=== PATIENT | female | born 1935 | race Caucasian/White ===

== ENCOUNTER 2018-06-11 20:33 | Observation (INO) | payer MEDICAID ==
[~2018-06-11] VITALS: Ht 147.3 cm; Wt 53.2 kg
[2018-06-11 20:54] VITALS: Ht 147.3 cm; Wt 53.2 kg
[2018-06-11] MEDS ORDERED: morphine 4 MG/ML VIAL IV STA (21:41)
[2018-06-11] MEDS ORDERED: ONDANSETRON 4 MG INJ IV STA (21:41)
[2018-06-11] MEDS ORDERED: ACETAMINOPHEN 500 MG TAB PO STA (21:41)
[2018-06-11] MEDS ORDERED: SOD CHLORIDE 0.9% 1,000 ML IV STA (21:41)
--- NOTE | 2018-06-11 21:43 | ERD ---
ER Documentation Chief Complaint Chief Complaint Hematuria, N/V, AP, fever X 3 days HPI This is an 83-year-old who had gross hematuria 2 days ago but has had continued dysuria and frequency and developed a low-grade fever today. She says off and on lower quadrant pain bilaterally and has a history of kidney stones. Currently she has no pain. She has nausea but no vomiting and no diarrhea. No chest pain shortness of breath or cough ROS All systems reviewed and are negative except as per history of present illness. Allergies Allergies: Coded Allergies: No Known Allergy (Unverified , 06/11/18) FmHx Family History: No coronary disease Physical Exam Vitals Vital Signs Date Temp Pulse Resp B/P (MAP) Pulse Ox O2 O2 Flow FiO2 Time Delivery Rate 06/12/18 75 13 122/62 99 Room Air 03:30 (82) 06/12/18 80 17 105/61 96 Room Air 01:30 (76) 06/11/18 91 18 104/53 96 Room Air 23:34 (70) 06/11/18 101.5 22:41 06/11/18 101.3 95 18 148/63 98 Room Air 21:15 (91) 06/11/18 101.3 97 18 132/93 97 20:54 (106) Physical Exam Const: Well-developed, well-nourished Head: Atraumatic, normocephalic Eyes: Normal Conjunctiva, PERRLA, EOMI, normal sclera, no nystagmus ENT: Normal External Ears, Nose and Mouth, moist mucus membranes. Neck: Full range of motion. No meningismus, no lymphadenopathy. Resp: Clear to auscultation bilaterally, no wheezing, rhonchi, rales Cardio: Regular rate and rhythm, no murmurs, S1 S2 present Abd: Soft, non tender x 4, non distended. Normal bowel sounds, no guarding or rebound, no pulsitile abdominal masses or bruits Skin: No petechiae or rashes, no ecchymosis , no maculopapular rash Back: No midline or flank tenderness Ext: No cyanosis, or edema, FROM x 4, normal inspection, neurovascularly intact x 4 Neur: Awake and alert, STR 5/5 x 4, sensation intact x 4, no focal findings, cerebellum intact Psych: Normal Mood and Affect Result Diagram: 3/212906/11/182129 Results 24 hrs Laboratory Tests Test 06/11/18 03:49 06/11/18 21:30 Urine Color BETTIE Urine Clarity CLOUDY Urine pH 5.0 Urine Specific [place] 1.011 Urine Ketones NEGATIVE mg/dL Urine Nitrite NEGATIVE mg/dL Urine Bilirubin NEGATIVE mg/dL Urine Urobilinogen NEGATIVE mg/dL Urine Leukocyte Esterase 3+ Edwin/ul Urine Microscopic RBC 51 /HPF Urine Microscopic WBC > 182 /HPF Urine Bacteria MODERATE /HPF Urine Mucus FEW /HPF Urine Hemoglobin 3+ mg/dL Urine Glucose 1+ mg/dL Urine Total Protein 2+ mg/dl White Blood Count 9.8 10^3/ul Red Blood Count 4.50 10^6/ul Hemoglobin 13.3 g/dl Hematocrit 40.1 % Mean Corpuscular Volume 89.1 fl Mean Corpuscular Hemoglobin 29.6 pg Mean Corpuscular Hemoglobin Concent 33.2 g/dl Red Cell Distribution Width 12.9 % Platelet Count 432 10^3/UL Mean Platelet Volume 9.1 fl Immature Granulocytes % 0.500 % Neutrophils % 78.6 % Lymphocytes % 9.6 % Monocytes % 10.7 % Eosinophils % 0.3 % Basophils % 0.3 % Nucleated Red Blood Cells % 0.0 /100WBC Immature Granulocytes # 0.050 10^3/ul Neutrophils # 7.7 10^3/ul Lymphocytes # 0.9 10^3/ul Monocytes # 1.1 10^3/ul Eosinophils # 0.0 10^3/ul Basophils # 0.0 10^3/ul Nucleated Red Blood Cells # 0.0 10^3/ul Sodium Level 139 mmol/L Potassium Level 4.1 mmol/L Chloride Level 99 mmol/L Carbon Dioxide Level 25 mmol/L Anion Gap 15 Blood Urea Nitrogen 30 mg/dl Creatinine 0.99 mg/dl Est Glomerular Filtrat Rate mL/min mL/min Glucose Level 105 mg/dl Calcium Level 10.0 mg/dl Total Bilirubin 0.5 mg/dl Direct Bilirubin 0.00 mg/dl Indirect Bilirubin 0.5 mg/dl Aspartate Amino Transf (AST/SGOT) 21 IU/L Alanine Aminotransferase (ALT/SGPT) 9 IU/L Alkaline Phosphatase 88 IU/L Total Protein 7.9 g/dl Albumin 4.2 g/dl Globulin 3.70 g/dl Albumin/Globulin Ratio 1.13 Lipase 108 U/L Current Medications Medications Dose Sig/Jasper Start Time Status Last (Trade) Ordered Route PRN Stop Time Admin Dose Reason Admin Sodium 1,000 ml @ Q1H STAT 06/11/18 DC 06/11/18 Chloride 1,000 mls/hr IV 21:41 22:41 06/11/18 22:40 Morphine 4 mg ONCE STAT 06/11/18 DC 06/11/18 Sulfate IV 21:41 22:41 (morphine) 06/11/18 21:43 Ondansetron 4 mg ONCE STAT 06/11/18 DC 06/11/18 HCl (Zofran IV 21:41 22:41 Inj) 06/11/18 21:43 1,000 mg ONCE STAT 06/11/18 DC 06/11/18 Acetaminophen PO 21:41 22:41 (Tylenol 06/11/18 21:43 Tab) Ceftriaxone 50 ml @ ONCE ONCE 06/12/18 DC 06/12/18 Sodium 100 mls/hr IVPB 04:00 04:30 06/12/18 04:29 Procedures/MDM MR #: [id number] DOS: 06/11/182140 Ordering MD: HUBER ALVAREZ DO Location: E/R Room/Bed: PROCEDURE: XR Chest. CLINICAL INDICATION: Abdominal pain TECHNIQUE: Single frontal view of the chest was obtained. COMPARISON: None FINDINGS: The heart is within normal limits. The thoracic aorta is calcified. The lungs are clear. There is no pleural effusion or pneumothorax. RPTAT: AA IMPRESSION: No acute disease. Calcified aorta consistent with atherosclerotic disease. .Warner Decker MD, Date Time Electronically viewed and signed by .Warner Decker MD, on 06/11/2018 22:08 .S/ CC: HUBER ALVAREZ DO [id number] MR #: [id number] DOS: 06/11/182140 Ordering MD: HUBER ALVAREZ DO Location: E/R Room/Bed: PROCEDURE: CT Abdomen and Pelvis without contrast. CLINICAL INDICATION: Pain. TECHNIQUE: CT scan of the abdomen and pelvis was performed on a multidetector slice CT scanner. No intravenous contrast material was utilized. Sagittal and coronal reformatted images were obtained from the axial source images. Images were reviewed on a high-resolution PACS workstation. Exam CTDlvol = 6.7 mGy and DLP = 347 Gy-cm. One of the following 3 dose reduction techniques were used: Automated exposure control; adjustment of the mA and/or kV according to patient size; or use of iterative reconstruction technique. DICOM images are available. COMPARISON: None. FINDINGS: There is a small hiatal hernia. There is no bowel obstruction or ileus. There is abundant retained stool throughout the colon. The appendix is visualized. There is no evidence for appendicitis.. There is no evidence for diverticulitis. There is no free fluid. The liver is enlarged measuring 18 cm length.. No intrahepatic lesions are identified. The gallbladder is absent. There is no definite biliary ductal dilation. Pancreas is normal in appearance. The spleen is unremarkable.. There are no adrenal masses. The aorta is normal caliber. Atherosclerotic vascular calcifications are present. There is 11 mm probable cyst in the upper pole right kidney. There is a punctate nonobstructing calcification upper pole right kidney. There is a left renal probable vascular calcification. Kidneys are otherwise normal in appearance without hydronephrosis, mass or obstructing calculus.. Ureters are of normal caliber and without evidence for an obstructing calculus. There is mild diffuse urinary bladder wall thickening. The urinary bladder is otherwise normal in appearance.. Uterus is prominent with multiple vascular calcifications. The ovaries are not well characterized.. The ovaries are not well characterized. Limited evaluation of the lung bases demonstrates bibasilar atelectasis. There is a small infiltrate versus scarring in the right middle lobe. There is a levoscoliosis of the mid lumbar spine with diffuse degenerative changes. There is mild likely chronic wedge deformity L1 vertebral body. IMPRESSION: 1. No bowel obstruction or ileus. Abundant retained stool. Small hiatal hernia. 2. No evidence for appendicitis or diverticulitis. 3. Hepatomegaly. Gallbladder not identified. No evidence for biliary dilata tion. Therefore no obstructive uropathy. Nonobstructing right renal calcifications. Left renal vascular calcification. Probable cyst upper pole left kidney. Urinary bladder wall thickening which may represent cystitis. 4. Prominent uterus with vascular calcification. Ovaries not well visualized. 5. Levoscoliosis with degenerative changes of the lumbar spine. Likely chronic wedge compression deformity L1 vertebral body. 6. Atherosclerotic vascular calcifications. 7. Right middle lobe probable scarring. The right bibasilar atelectasis. RPTAT: HMVK .Syed Charles MD, MD Date Time Electronically viewed and signed by .Syed Charles MD, on 06/12/2018 01:49 .K/ CC: HUBER ALVAREZ DO [id number] The patient's had blood cultures and urine culture and antibiotics have been given. I will admit the patient for hematuria with UTI and fever in an 83-year- old with evidence of cystitis on CT. Departure Diagnosis: Primary Impression: Fever Fever type: unspecified Qualified Codes: R50.9 - Fever, unspecified Additional Impressions: UTI (urinary tract infection) Urinary tract infection type: acute cystitis Hematuria presence: with hematuria Qualified Codes: N30.01 - Acute cystitis with hematuria Hematuria Hematuria type: unspecified type Qualified Codes: R31.9 - Hematuria, unspecified Condition: Stable HUBER ALVAREZ DO Jun 11, 2018 21:43
[2018-06-12] MEDS ORDERED: CEFTRIAXONE 1 GM/50 ML (PMX) 50 ML IVPB ONE (04:00)
[2018-06-12] MEDS ORDERED: DOCUSATE SODIUM 100 MG CAP PO PRN (05:00)
[2018-06-12] MEDS ORDERED: ONDANSETRON 4 MG INJ IV PRN ×2 (05:00)
[2018-06-12] MEDS ORDERED: HYDROCODONE/APAP (5/325) TAB PO PRN (05:00)
[2018-06-12] MEDS ORDERED: BISACODYL (EC) 5 MG TAB PO PRN (05:00)
[2018-06-12] MEDS ORDERED: morphine 2 MG INJ IV PRN (05:00)
[2018-06-12] MEDS ORDERED: ACETAMINOPHEN 325 MG TAB PO PRN ×2 (05:00)
[2018-06-12] MEDS ORDERED: NACL 0.9% 3 ML SYG IV SCH (05:00)
[2018-06-12] MEDS ORDERED: FOSFOMYCIN 3 GM PACKET PO ONE (08:30)
--- NOTE | 2018-06-12 08:41 | HP ---
Date/Time of Note Date/Time of Note DATE: 06/12/18 TIME: 08:32 Assessment/Plan VTE Prophylaxis SCD contraindicated: low risk/ambulating Pharmacological prophylaxis: heparin Lines/Catheters IV Catheter Type (from Nrs): Saline Lock Assessment/Plan Problems: (1) UTI (urinary tract infection) Status: Acute Comment: Urine cultures and blood cultures have been obtained. Given the symp tomatology I suspect this is already trying to make its way into an upper urinary tract issue. As such she needs to be brought in so that we can make sure that she can take p.o. successfully. Hopefully she will rapidly turn around and will be able to be discharged on oral antibiotics in the near future. Qualifiers: Urinary tract infection type: acute cystitis Hematuria presence: with hematuria Qualified Codes: N30.01 - Acute cystitis with hematuria (2) Diabetes mellitus type 2 in nonobese Status: Chronic Comment: Continue with medications as we have them. Along her Accu-Cheks to make sure that we do not get a field of where we need to be (3) Essential hypertension Status: Chronic Comment: Continue with angiotensin II receptor homero drug (4) Hyperlipidemia Status: Chronic Comment: Patient is not been treated. She does have evidence of some vascular calcifications and it may be a consideration but I will defer this to her [facility] team of doctors when she gets home. Qualifiers: Hyperlipidemia type: pure hypercholesterolemia Qualified Codes: E78.00 - Pure hypercholesterolemia, unspecified (5) History of renal stone Status: Chronic Comment: Noted and not present on CT Result Diagram: 06/11/18212906/11/182129 Results 24hrs Laboratory Tests Test 06/11/18 21:30 White Blood Count 9.8 Red Blood Count 4.50 Hemoglobin 13.3 Hematocrit 40.1 Mean Corpuscular Volume 89.1 Mean Corpuscular Hemoglobin 29.6 Mean Corpuscular Hemoglobin Concent 33.2 Red Cell Distribution Width 12.9 Platelet Count 432 H Mean Platelet Volume 9.1 Immature Granulocytes % 0.500 H Neutrophils % 78.6 H Lymphocytes % 9.6 L Monocytes % 10.7 Eosinophils % 0.3 Basophils % 0.3 Nucleated Red Blood Cells % 0.0 Immature Granulocytes # 0.050 H Neutrophils # 7.7 H Lymphocytes # 0.9 Monocytes # 1.1 H Eosinophils # 0.0 Basophils # 0.0 Nucleated Red Blood Cells # 0.0 Sodium Level 139 Potassium Level 4.1 Chloride Level 99 Carbon Dioxide Level 25 Anion Gap 15 H Blood Urea Nitrogen 30 H Creatinine 0.99 Est Glomerular Filtrat Rate mL/min Glucose Level 105 Calcium Level 10.0 Total Bilirubin 0.5 Direct Bilirubin 0.00 Indirect Bilirubin 0.5 Aspartate Amino Transf (AST/SGOT) 21 Alanine Aminotransferase (ALT/SGPT) 9 L Alkaline Phosphatase 88 Total Protein 7.9 Albumin 4.2 Globulin 3.70 H Albumin/Globulin Ratio 1.13 Lipase 108 HPI/ROS Admit Date/Time Admit Date/Time June 12, 2018 Hx of Present Illness This is first [facility] admission for this 83-year-old Togol[place] female who is visiting her son's family here locally on vacation from her home in [facility]. She has a history of prior renal stones and it actually had surgery to remove 1 of the stones. She did develop a low-grade fever is a sense of abdominal discomfort nausea without emesis. She was having the recent onset of burning on urination and had noted to have blood in her urine. She was starting to not take orally well and was brought to the emergency room. She is being admitted with hematuria with a clear-cut urinary tract infection, and poor p.o. intake. ROS Constitutional: febrile, nausea Eyes: no complaints ENT: no complaints Respiratory: no complaints Cardiovascular: no complaints Gastrointestinal: nausea Genitourinary: bleeding, dysuria Musculoskeletal: no complaints Skin: no complaints Neurologic: no complaints Endocrine: no complaints Lymphatic: no complaints Psychological: no complaints PMH/Family/Social Past Medical History Medical History: diabetes (Type II combo metformin and insulin), high cholesterol, hypertension, urinary tract infection, other (History of renal stones) Medications Current Medications Ondansetron HCl (Zofran Inj) 4 mg BRIDGE ORDER PRN IV NAUSEA/VOMITING Last administered on 06/12/18at 06:01; Admin Dose 4 MG; Start 06/12/18 at 05:00; Stop 06/13/18 at 04:59 Acetaminophen (Tylenol Tab) 650 mg ER BRIDGE PRN PO .MILD PAIN 1-3 OR TEMP; Start 06/12/18 at 05:00; Stop 06/13/18 at 04:59 Sodium Chloride 1,000 ml @ 70 mls/hr [id number] IV ; Start 06/12/18 at 05:00; Stop 06/13/18 at 04:59 IV Flush (NS 3 ml) 3 ml PER PROTOCOL IV ; Start 06/12/18 at 05:00 Ondansetron HCl (Zofran Inj) 4 mg Q4H PRN IV NAUSEA/VOMITING; Start 06/12/18 at 05:00 Acetaminophen (Tylenol Tab) 650 mg Q6H PRN PO .PAIN 1-3 OR TEMP; Start 06/12/18 at 05:00 Acetaminophen/ Hydrocodone Bitart ([place] (5/325)) 1 tab Q6H PRN PO .MOD PAIN 4- 6; Start 06/12/18 at 05:00 Morphine Sulfate (morphine) 1 mg Q4H PRN IV .SEVERE PAIN 7-10; Start 06/12/18 at 05:00 Docusate Sodium (Colace) 100 mg Q12H PRN PO .CONSTIPATION; Start 06/12/18 at 05:00 Bisacodyl (Dulcolax) 5 mg DAILY PRN PO .CONSTIPATION; Start 06/12/18 at 05:00 Ceftriaxone Sodium 50 ml @ 100 mls/hr Q24H IVPB ; Start 06/13/18 at 00:00 Coded Allergies: No Known Allergy (Unverified , 06/11/18) Past Surgical History Past Surgical Hx: cholecystectomy, other (Status post direct contact lithotripsy in [facility]; status post ) Family History Significant Family History: diabetes, hypertension Social History Born in [facility] and raised there. She is divorcee who lives alone. 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 She is here visiting her son for his birthday Alcohol Use: none Smoking Status: Never smoker Drug Use: none Exam/Review of Systems Vital Signs Vitals Vital Signs Date Temp Pulse Resp B/P (MAP) Pulse Ox O2 O2 Flow FiO2 Time Delivery Rate 06/12/18 98.4 88 20 144/79 98 Room Air 07:59 (100) Exam Exam Charming female in no ashia distress who presents as highly educated Constitutional: alert, oriented Psych: no complaints, nl mood/affect Head: normocephalic, atraumatic Eyes: nl conjunctiva, EOMI, nl lids, nl sclera, PERRL ENMT: nl external ears & nose, nl lips & teeth, nl nasal mucosa & septum, mucosa pink and moist Neck: supple, non-tender (Normal thyroid; no bruits) Respiratory: clear to auscultation, normal air movement Cardiovascular: regular rate and rhythm, nl pulses Gastrointestinal: soft, nl liver, spleen, tender (Vague non-rebound tenderness diffusely) Musculoskeletal: nl extremities to inspection, nl gait and stance Extremities: normal pulses Neurological: END WORKER II-XII intact, nl mental status, nl speech Skin: nl ANUPAMA Rubio MD Jun 12, 2018 08:41
[2018-06-12 08:51] VITALS: BP 120/68; PULSE 112; RESP 17
[2018-06-12] MEDS ORDERED: DEXTROSE 50% 50 ML SYRINGE IV PRN ×2 (09:00)
[2018-06-12] MEDS ORDERED: GLUCOSE GEL 15 GRAM TUBE PO PRN ×2 (09:00)
[2018-06-12] MEDS ORDERED: GLUCOSE GEL 15 GRAM TUBE BUCCAL PRN (09:00)
[2018-06-12] MEDS ORDERED: GLUCAGON 1 MG INJ IM PRN (09:00)
[2018-06-12] MEDS: SOD CHLORIDE 0.9% 1,000 ML IV SCH ×3 (09:54→23:42)
[2018-06-12] MEDS: LOSARTAN 50 MG TAB PO SCH (09:57)
[2018-06-12] MEDS: FAMOTIDINE 20 MG TAB PO SCH ×2 (09:58→20:35)
[2018-06-12] MEDS: ACCU-CHEK XX SCH ×3 (09:58→20:05)
[2018-06-12] MEDS: INSULIN ASPART [NOVOLOG] 3 ML PEN SC SCH ×4 (13:14→20:35)
[2018-06-12 14:33] VITALS: BP 102/54; PULSE 76; RESP 17
[2018-06-12] MEDS ORDERED: INSULIN GLARGINE [LANTus] (100 UNITS/ML) SYG SC ONE (16:00)
[2018-06-12] MEDS ORDERED: INSULIN ASPART [NOVOLOG] 3 ML PEN SC ONE (16:00)
[2018-06-12] MEDS: metFORMIN 850 MG TAB PO SCH (17:56)
[2018-06-12 20:00] VITALS: BP 120/58; PULSE 80; RESP 18
[2018-06-12] MEDS ORDERED: INSULIN GLARGINE [LANTus] (100 UNITS/ML) SYG SC SCH (20:00)
[2018-06-13] MEDS ORDERED: CEFTRIAXONE 1 GM/50 ML (PMX) 50 ML IVPB SCH
[2018-06-13 02:00] VITALS: BP 138/67; PULSE 84; RESP 16
[2018-06-13] MEDS ORDERED: ACCU-CHEK XX SCH (02:00)
[2018-06-13 07:58] VITALS: BP 147/68; PULSE 72; RESP 16
[2018-06-13] MEDS: LOSARTAN 50 MG TAB PO SCH (08:45)
[2018-06-13] MEDS: FAMOTIDINE 20 MG TAB PO SCH (08:45)
[2018-06-13] MEDS: metFORMIN 850 MG TAB PO SCH ×2 (08:45→17:34)
[2018-06-13] MEDS: INSULIN ASPART [NOVOLOG] 3 ML PEN SC SCH ×6 (08:47→17:35)
[2018-06-13] MEDS: ACCU-CHEK XX SCH ×2 (10:03→14:04)
[2018-06-13] MEDS ORDERED: INSULIN GLARGINE [LANTus] (100 UNITS/ML) SYG SC ONE (11:30)
--- NOTE | 2018-06-13 11:34 | PDOCDIS ---
Discharge Instructions CONDITION Hragl2Gv Patient Condition: Waauz4n Stable HOME CARE INSTRUCTIONS: Bszvk4Ic Special Diet: Qbpwq5x [id number] Activity Restrictions: Zoyim7p Slowly Increase Activity Rest between Activity FOLLOW UP/APPOINTMENTS Follow-up Plan You will be given a list of Federally funded clinics where you can receive followup care Please call each one right away and try and get an appointment as soon as possible. In the meantime, Review your medication list with your nurse before leaving and if you need new prescriptions please let your nurse know. I may have made changes to your home medications or given you new prescriptions, please let your primary doctor know as well. Stay compliant with your medications and report any side effects to your PCP or pharmacist. Return to the ER if you have any concerns and cannot reach your doctors. Se le gloria feli lista de clnicas financiadas federalmente donde puede recibir atencin de seguimiento Por favor llame a cada kerrie de inmediato y tratar de obtener feli viviana deshpande pronto tino sea posible. Mientras tanto, revise lux lista de medicamentos con lux enfermera antes de salir y si necesita nuevas recetas, por favor informe a lux enfermera. Es posible que haya hecho cambios en milagros medicamentos para el hogar o le haya dado nuevas recetas, por favor, informe a lux mdico de cabecera tambin. Mantngase conforme con milagros medicamentos y Reporte cualquier efecto secundario a lux PCP o farmacutico. Regrese a urgencias si tiene alguna inquietud y no puede comunicarse con milagros mdicos. ITZEL MONTEMAYOR Jun 13, 2018 11:34
[2018-06-13] MEDS ORDERED: METF-480 PO (11:41)
[2018-06-13] MEDS ORDERED: LOSA50TA2 PO (11:41)
[2018-06-13] MEDS ORDERED: DOCU-144 PO (11:41)
[2018-06-13] MEDS ORDERED: GLIP5TAB13 PO (11:41)
[2018-06-13] MEDS ORDERED: MAGNESIUM SULFATE 2 GM/50 ML 50 ML IVPB ONE (12:30)
[2018-06-13 14:15] VITALS: BP 109/56; PULSE 82; RESP 16
[2018-06-13] MEDS ORDERED: CIPR500T4 PO (15:25)
--- NOTE | 2018-06-13 15:27 | PDOCDIS ---
Discharge Instructions CONDITION Iowsb4Cs Patient Condition: Aqelq7b Stable HOME CARE INSTRUCTIONS: Xakfx4Cf Special Diet: Kikyb9h Wgiwo5Dn Activity Restrictions: Minwp6b Slowly Increase Activity Rest between Activity FOLLOW UP/APPOINTMENTS Follow-up Plan You will be given a list of Federally funded clinics where you can receive followup care Please call each one right away and try and get an appointment as soon as possible. In the meantime, Review your medication list with your nurse before leaving and if you need new prescriptions please let your nurse know. You should be able to picking machine operator helper your medications at [facility] for $4 / drug for a month supply. This is not a guaranteed albright though. I may have made changes to your home medications or given you new prescriptions, please let your primary doctor know as well. Stay compliant with your medications and report any side effects to your PCP or pharmacist. Return to the ER if you have any concerns and cannot reach your doctors. Se le gloria feli lista de clnicas financiadas federalmente donde puede recibir atencin de seguimiento Por favor llame a cada kerrie de inmediato y tratar de obtener feli viviana deshpande pronto tino sea posible. Mientras tanto, revise lux lista de medicamentos con lux enfermera antes de salir y si necesita nuevas recetas, por favor informe a lux enfermera. Es posible que haya hecho cambios en milagros medicamentos para el hogar o le haya dado nuevas recetas, por favor, informe a lux mdico de cabecera tambin. Mantngase conforme con milagros medicamentos y Reporte cualquier efecto sec undario a lux PCP o farmacutico. Regrese a urgencias si tiene alguna inquietud y no puede comunicarse con milagros mdicos. ITZEL MONTEMAYOR Jun 13, 2018 15:27
[2018-06-13] MEDS ORDERED: ASPI-817 PO (15:30)
--- NOTE | 2018-06-13 15:32 | PDOCDIS ---
Discharge Instructions CONDITION [id number] Patient Condition: Tgzbh1v Stable HOME CARE INSTRUCTIONS: Zgbkj7Bo Special Diet: Pzprm4s [id number] Activity Restrictions: Biunu5q Slowly Increase Activity Rest between Activity FOLLOW UP/APPOINTMENTS Follow-up Plan You will be given a list of Federally funded clinics where you can receive followup care Please call each one right away and try and get an appointment as soon as possible. In the meantime, Review your medication list with your nurse before leaving and if you need new prescriptions please let your nurse know. You should be able to pickler helper your medications at [facility] for $4 / drug for a month supply. This is not a guaranteed albright though. I may have made changes to your home medications or given you new prescriptions, please let your primary doctor know as well. Stay compliant with your medications and report any side effects to your PCP or pharmacist. Return to the ER if you have any concerns and cannot reach your doctors. Se le gloria feli lista de clnicas financiadas federalmente donde puede recibir atencin de seguimiento Por favor llame a cada kerrie de inmediato y tratar de obtener feli viviana deshpande pronto tino sea posible. Mientras tanto, revise frazier lista de medicamentos con frazier enfermera antes de salir y si necesita nuevas recetas, por favor informe a frazier enfermera. Es posible que haya hecho cambios en milagros medicamentos para el hogar o le haya dado nuevas recetas, por favor, informe a frazier mdico de cabecera tambin. Mantngase conforme con milagros medicamentos y Reporte cualquier efecto sec undario a frazier PCP o farmacutico. Regrese a urgencias si tiene alguna inquietud y no puede comunicarse con milagros mdicos. OTHER ORDERS: Other Orders: Your good cholesterol is low, eat a diet high in fiber and take one over the counter fishoil tablet twice daily to help boost your levels Frazier colesterol yoshi boswell, comer feli dieta tal en fibra y jalyn kerrie sobre el contador aceite tableta dos veces al da para ayudar a aumentar milagros niveles ITZEL MONTEMAYOR Jun 13, 2018 15:32
--- NOTE | 2018-06-13 15:37 | DS ---
DATE OF ADMISSION: 06/12/2018 DATE OF DISCHARGE: 06/13/2018 FINAL DIAGNOSES: 1. Gram-negative siva urinary tract infection. 2. Diabetes mellitus with poor home control. Hemoglobin A1c of 11.4. 3. Mild dyslipidemia with mildly low HDL. 4. Sepsis. CONSULTS ON THE CASE: None. INTERVENTIONS: The patient was admitted for sepsis secondary to urinary tract infection. HOSPITAL COURSE: Patient was admitted for sepsis secondary to urinary tract infection, was treated w ith IV antibiotics. At this time is doing much better, has been more than 24-hour fever free and is stable for discharge. Of note is that the patient is [place] from a different country. Her medi cations have been adjusted. I have also taking pains to ensure that the medications she is discharge d are available on the [email or web address] $4 list for her to purchase. I explained this to her in detail and sh victor hugo has verbalized understanding. DISPOSITION: To home with family. ACTIVITY: As tolerated. FOLLOWUP: The patient has been given a list of surgery funded clinics and I encouraged her to call o ne of them to get followup appointment. In the interim, if she develops any recurrence of her fever or symptoms not completely resolve, she is able to go back to the Emergency Room to be evaluated cuco mendoza. She has verbalized understanding and agreement with the plan. At this time, final cultures are n ot available in the chart, but she will be discharged on empiric antibiotics and will contact her if she requires any adjustment to the medications. DISCHARGE MEDICATIONS: For complete list, please review the patient's chart. DIET: Recommended diet is 1800 calorie ADA diet and time spent on discharge coordination has been 40 minutes. Dictated By: ITZEL MONTEMAYOR MD BA/NTS Conf#: [id number] DID#: [id number] CC: GARLAND CERVANTES MD;*EndCC*
[2018-06-13] MEDS ORDERED: INSULIN GLARGINE [LANTus] (100 UNITS/ML) SYG SC SCH (20:00)
== END 2018-06-13 18:40 | disposition home or self-care (01) ==
LOC: E/R 20:33 → PP2 06-12 04:47
PROVIDERS: ADMIT Family Medicine; ATTEND Family Medicine
DX: N39.0 Urinary tract infection, site not specified (principal); E78.5 Hyperlipidemia, unspecified; E11.9 Type 2 diabetes mellitus without complications; I10 Essential (primary) hypertension
CPT/HCPCS: 36415; 71045; 74176; 80053; 80061; 81001; 82962; 83036; 83690; 83735; 84443; 85025; 87040; 87086; 96374; 96375; 99285; G0378; J0696; J1815; J2270; J2405; J3475; J7030